=== PATIENT | male | born 1945 | race Caucasian/White ===

== ENCOUNTER 2024-08-21 18:26 | Inpatient (IN) | payer MEDICARE, OTHER ==
[~2024-08-21] VITALS: Ht 170.2 cm; Wt 68.0 kg
[2024-08-21 19:48] LABS: BASOPHILS % (AUTO) 0.6 % (0.0-2.0); EOSINOPHILS # (AUTO) 0.1 K/uL (0.0-0.7); EOSINOPHILS % (AUTO) 1.5 % (0.0-6.0); HEMATOCRIT 37 % (39-51); HEMOGLOBIN 12.3 g/dL (13.5-17.5); LYMPHOCYTES # (AUTO) 1.6 K/uL (0.8-4.8); LYMPHOCYTES % (AUTO) 34.6 % (20.0-44.0); MEAN CORPUSCULAR HEMOGLOBIN 35 PG (26.0-33.0); MEAN CORPUSCULAR HGB CONC 33 g/dl (31.0-36.0); MEAN CORPUSCULAR VOLUME 104 fL (80-96); MONOCYTES # (AUTO) 0.6 K/uL (0.1-1.30); MONOCYTES % (AUTO) 14.4 % (2.0-12.0); NEUTROPHILS # (AUTO) 2.2 K/uL (1.8-8.9); NEUTROPHILS % (AUTO) 48.9 % (43.0-81.0); PLATELET COUNT (AUTO) 193 K/uL (150-450); RED BLOOD CELL COUNT(AUTO) 3.54 MIL/uL (4.5-6.0); RED CELL DISTRIBUTION WIDTH 14.6 % (11.5-15.0); WHITE BLOOD COUNT (AUTO) 4.5 K/uL (4.3-11.0)
[2024-08-21] MEDS ORDERED: DOCU100C36 PO (19:52)
[2024-08-21] MEDS ORDERED: SENN-261 PO (19:52)
[2024-08-21] MEDS ORDERED: NA P133E RC (19:52)
[2024-08-21] MEDS ORDERED: AMIN30LI2 PO (19:52)
[2024-08-21] MEDS ORDERED: ACET-637 PO (19:52)
[2024-08-21] MEDS ORDERED: LEVE100023 PO (19:52)
[2024-08-21] MEDS ORDERED: POLY15DR31 EACHEYE (19:52)
[2024-08-21] MEDS ORDERED: LIDO30AD10 TP (19:52)
[2024-08-21] MEDS ORDERED: BUPR300T52 PO (19:52)
[2024-08-21] MEDS ORDERED: TRAZ150T75 PO (19:52)
[2024-08-21] MEDS ORDERED: BISA10SU11 RC (19:52)
[2024-08-21] MEDS ORDERED: DONE10TA44 PO (19:52)
[2024-08-21] MEDS ORDERED: ATOR40TA PO (19:52)
[2024-08-21] MEDS ORDERED: KETO120S5 TP (19:52)
[2024-08-21] MEDS ORDERED: BENZ5.1G MM (19:52)
[2024-08-21] MEDS ORDERED: METH-649 PO (19:52)
[2024-08-21] MEDS ORDERED: ONDA4TAB11 PO (19:52)
[2024-08-21] MEDS ORDERED: FLUO20TA28 PO (19:52)
[2024-08-21] MEDS ORDERED: HYDR-4303 PO (19:52)
[2024-08-21] MEDS ORDERED: PREG-57 PO (19:52)
[2024-08-21] MEDS ORDERED: MULT-225 PO (19:52)
[2024-08-21] MEDS ORDERED: QUET50TA PO (19:52)
[2024-08-21] MEDS ORDERED: GUAI100L26 PO (19:52)
[2024-08-21] MEDS ORDERED: MELA10TA7 PO (19:52)
[2024-08-21] MEDS ORDERED: ACET-73 PO (19:52)
[2024-08-21] MEDS ORDERED: MAGN400O6 PO (19:52)
[2024-08-21] MEDS ORDERED: FAMO20TA8 PO (19:52)
[2024-08-21] MEDS ORDERED: LACT10SO29 PO (19:52)
[2024-08-21] MEDS ORDERED: CYAN100096 PO (19:52)
[2024-08-21] MEDS ORDERED: ASPI-1420 PO (19:52)
[2024-08-21] MEDS ORDERED: DIVA125T32 PO (19:52)
[2024-08-21] MEDS ORDERED: LEVO150T8 PO (19:52)
[2024-08-21 19:55] LABS: APPEARANCE,URINE CLEAR (CLEAR); BILIRUBIN,URINE Negative (NEGATIVE); BLOOD, URINE Negative Ery/uL (NEGATIVE); COLOR,URINE YELLOW (YELLOW); KETONES,URINE Trace mg/dL (NEGATIVE); LEUKOCYTE ESTERASE ,URINE Trace (NEGATIVE); PROTEIN,URINE Negative (NEGATIVE); UGLUCOSE Negative (NEGATIVE); UROBILINOGEN,URINE 0.2 EU/dL (0.2)
[2024-08-21 19:59] LABS: ACETAMINOPHEN < 10 ug/ml (10-30); ALANINE AMINOTRANSFERASE 19 U/L (12-78); ALBUMIN 3.2 g/dL (3.4-5.0); ALKALINE PHOSPHATASE 78 U/L (46-116); ASPARTATE AMINOTRANSFERASE 16 U/L (15-37); BILIRUBIN,DIRECT 0.1 mg/dL (0.0-0.2); BILIRUBIN,TOTAL 0.2 mg/dL (0.2-1.0); CALCIUM, SERUM 8.6 mg/dL (8.5-10.1); CARBON DIOXIDE 33 mmol/L (21-32); CHLORIDE 104 mmol/L (98-107); CREATININE 0.7 mg/dL (0.6-1.3); GLUCOSE 86 mg/dL (74-106); POTASSIUM 3.8 mmol/L (3.5-5.1); SODIUM SERUM 139 mmol/L (136-145); TOTAL PROTEIN, SERUM 6.5 g/dL (6.4-8.2); UREA NITROGEN, BLOOD 24 mg/dL (7-18)
[2024-08-21 20:00] LABS: NITRITE, URINE POSITIVE (NEGATIVE)
[2024-08-21 20:02] LABS: ADD URINE CULTURE YES; AMPHETAMINE, URINE NEGATIVE (NEGATIVE); BACTERIA,URINE Few /HPF (None Seen); BARBITURATE, URINE NEGATIVE (NEGATIVE); BENZODIAZEPINE, URINE NEGATIVE (NEGATIVE); CALCIUM OXALATE CRYSTALS,UR Few /HPF (None Seen); CANNABINOID, URINE NEGATIVE (NEGATIVE); COCCAINE, URINE NEGATIVE (NEGATIVE); OPIATE, URINE NEGATIVE (NEGATIVE); PHENCYCLIDINE SCREEN,URINE NEGATIVE (NEGATIVE); SQUAMOUS EPITHELIAL CELL,UR None Seen /HPF (None Seen)
[2024-08-21 20:03] LABS: ALCOHOL, BLOOD < 3 mg/dL (0-10); SALICYLATE 0.7 mg/dL (2.8-20.0)
[2024-08-21] MEDS ORDERED: CEPHALEXIN MONOHYDRATE 500 MG CAPSULE PO ONE (22:22)
[2024-08-21] MEDS: CEPHALEXIN MONOHYDRATE 250 MG CAPSULE PO SCH (22:24)
[2024-08-21] MEDS ORDERED: QUETIAPINE FUMARATE 25 MG TABLET PO PRN (23:00)
[2024-08-21] MEDS ORDERED: MAG HYDROX/AL HYDROX/SIMETH 30 ML UDC PO PRN (23:00)
[2024-08-21] MEDS ORDERED: ZOLPIDEM TARTRATE 5 MG TABLET PO PRN ×2 (23:00)
[2024-08-21] MEDS ORDERED: MAGNESIUM HYDROXIDE 30 ML UDC PO PRN (23:00)
[2024-08-21] MEDS: BLOOD SUGAR DIAGNOSTIC 1 EACH STRIP IN ONE (23:38)
[2024-08-22] MEDS ORDERED: QUETIAPINE FUMARATE 25 MG TABLET PO PRN (00:30)
[2024-08-22] MEDS ORDERED: LIDOCAINE 5% (PATCH) 1 EA PATCH TP PRN (00:30)
[2024-08-22] MEDS: HYDROCODONE/APAP 5/325MG TABLET PO PRN (01:45)
[2024-08-22 02:14] VITALS: BP 115/96; TEMP 97.5; O2SAT 95
[2024-08-22 07:45] LABS: ALBUMIN 3.6 g/dL (3.4-5.0); BILIRUBIN,TOTAL 0.4 mg/dL (0.2-1.0); CREATININE 0.6 mg/dL (0.6-1.3); POTASSIUM 3.9 mmol/L (3.5-5.1); TOTAL PROTEIN, SERUM 7.3 g/dL (6.4-8.2)
[2024-08-22 07:57] LABS: CHOLESTEROL 101 mg/dL (<200); HDL CHOLESTEROL 53 mg/dL (40-60); LDL 41 mg/dL (0-99); TRIGLYCERIDES 49 mg/dL (30-150)
[2024-08-22 08:00] VITALS: BP 133/78; TEMP 98.1; O2SAT 98
[2024-08-22] MEDS: LEVOTHYROXINE SODIUM 50 MCG TABLET PO SCH (08:12)
[2024-08-22 08:20] LABS: THYROID STIMULATING HORMONE 1.43 uIU/mL (0.358-3.74)
[2024-08-22] MEDS: LEVETIRACETAM (250 MG) 250 MG TABLET PO SCH (08:38)
[2024-08-22] MEDS: PREGABALIN 25 MG CAPSULE PO SCH (08:38)
[2024-08-22] MEDS: MULTIVITAMINS,THERAGRAN 1 UDTAB TABLET PO SCH (08:38)
[2024-08-22] MEDS: CYANOCOBALAMIN 500 MCG TABLET PO SCH (08:38)
[2024-08-22] MEDS: ASPIRIN EC 81 MG TABLET.DR PO SCH (08:38)
[2024-08-22] MEDS: SENNOSIDES 8.6 MG TABLET PO SCH (08:38)
[2024-08-22] MEDS: FAMOTIDINE (20 MG) 20 MG TABLET PO SCH (08:38)
[2024-08-22] MEDS: DOCUSATE SODIUM 100 MG CAPSULE PO SCH (08:38)
[2024-08-22] MEDS: POLYVINYL ALCOHOL 15 ML BOTTLE EACHEYE SCH (08:39)
[2024-08-22 16:00] VITALS: BP 131/82; TEMP 97.8; O2SAT 99
[2024-08-22] MEDS: PROSOURCE / PROSTAT (PYXIS) 30 ML UDC PO SCH (18:00)
[2024-08-22 20:00] VITALS: BP 143/82; TEMP 97.8; O2SAT 96
[2024-08-22] MEDS: DIVALPROEX SODIUM 125 MG TABLET.DR PO SCH (21:24)
[2024-08-22] MEDS: ATORVASTATIN 40 MG TABLET PO SCH (21:24)
[2024-08-22] MEDS: DONEPEZIL 5 MG TABLET PO SCH (21:24)
[2024-08-22] MEDS: QUETIAPINE FUMARATE 25 MG TABLET PO SCH (21:39)
[2024-08-22] MEDS ORDERED: Medication Not On Formulary EA (Melatonin 10 MG) PO SCH (22:00)
[2024-08-23 08:00] VITALS: BP 125/68; TEMP 97.7; O2SAT 97
[2024-08-23] MEDS: SERTRALINE HCL 25 MG TABLET PO SCH (10:15)
[2024-08-23 16:00] VITALS: BP 115/69; TEMP 97.7; O2SAT 95
[2024-08-23 20:00] VITALS: BP 126/86; TEMP 98.1; O2SAT 96
[2024-08-23] MEDS: TEMAZEPAM 7.5 MG CAPSULE PO PRN (23:36)
[2024-08-24 08:00] VITALS: BP 128/84; TEMP 97.8; O2SAT 98
[2024-08-24] MEDS: QUETIAPINE FUMARATE 25 MG TABLET PO PRN (11:21)
[2024-08-24 16:00] VITALS: BP 113/74; TEMP 98.7; O2SAT 95
[2024-08-24] MEDS: ACETAMINOPHEN 325 MG TABLET PO PRN (19:02)
[2024-08-24 20:04] VITALS: BP 125/73; TEMP 98.1; O2SAT 95
[2024-08-25 07:30] VITALS: BP 126/76; TEMP 98.1; O2SAT 98
[2024-08-25 16:00] VITALS: BP 139/89; TEMP 98.2; O2SAT 93
[2024-08-25 20:00] VITALS: BP 123/79; TEMP 98.1; O2SAT 96
[2024-08-25 20:29] VITALS: BP 123/79; TEMP 98.1; O2SAT 96
[2024-08-26 08:37] VITALS: BP 123/91; TEMP 97.8; O2SAT 94
[2024-08-26 16:00] VITALS: BP 119/79; TEMP 97.7; O2SAT 96
[2024-08-26] MEDS: Z GUARD REMEDY 4 OZ OINT TP SCH (18:14)
[2024-08-26] MEDS ORDERED: OLANZAPINE 10 MG VIAL IM STA (19:13)
[2024-08-26] MEDS: OLANZAPINE 10 MG VIAL IM STA (19:36)
[2024-08-26 20:38] VITALS: BP 139/80; TEMP 98.2; O2SAT 97
[2024-08-27 08:00] VITALS: BP 131/69; TEMP 97.8; O2SAT 100
[2024-08-27] MEDS: NEOMY SULF/BACITRAC ZN/POLY 15 GM TUBE TP SCH (09:00)
[2024-08-27] MEDS: DIVALPROEX SODIUM 125 MG TABLET.DR PO SCH (13:17)
[2024-08-27 16:00] VITALS: BP 110/70; TEMP 97.7; O2SAT 97
[2024-08-27 20:00] VITALS: BP 122/84; TEMP 95.7; O2SAT 97
[2024-08-28 08:00] VITALS: BP 143/85; TEMP 97.7; O2SAT 94
[2024-08-28 16:00] VITALS: BP 105/79; TEMP 98; O2SAT 98
[2024-08-28 20:00] VITALS: BP 122/75; TEMP 98.1; O2SAT 97
[2024-08-28 21:22] VITALS: BP 122/75; TEMP 98.1; O2SAT 97
[2024-08-29 08:00] VITALS: BP 133/78; TEMP 98.1; O2SAT 98
[2024-08-29] MEDS: QUETIAPINE FUMARATE 25 MG TABLET PO SCH (11:38)
[2024-08-29 16:08] VITALS: BP 104/73; TEMP 97.9; O2SAT 97
[2024-08-29 20:02] VITALS: BP 119/68; TEMP 97.9; O2SAT 95
[2024-08-30 08:00] VITALS: BP 130/78; TEMP 98; O2SAT 100
== END 2024-08-30 14:45 | DRG 885 ==
LOC: ER 18:32 → GPS 21:33
PROVIDERS: ADMIT Psychiatry & Neurology Psychiatry; ATTEND Nurse Practitioner Acute Care
DX: F39 Unspecified mood [affective] disorder (principal); F02.818 Dementia in other diseases classified elsewhere, unspecified severity, with other behavioral disturbance; F02.82 Dementia in other diseases classified elsewhere, unspecified severity, with psychotic disturbance; F02.84 Dementia in other diseases classified elsewhere, unspecified severity, with anxiety; F02.83 Dementia in other diseases classified elsewhere, unspecified severity, with mood disturbance; N39.0 Urinary tract infection, site not specified; E44.1 Mild protein-calorie malnutrition; I10 Essential (primary) hypertension; F29 Unspecified psychosis not due to a substance or known physiological condition; N40.0 Benign prostatic hyperplasia without lower urinary tract symptoms; G20.A1 Parkinson's disease without dyskinesia, without mention of fluctuations; G31.83 Neurocognitive disorder with Lewy bodies; Z96.611 Presence of right artificial shoulder joint; Z87.891 Personal history of nicotine dependence; E78.5 Hyperlipidemia, unspecified; F31.9 Bipolar disorder, unspecified; F43.10 Post-traumatic stress disorder, unspecified; E03.9 Hypothyroidism, unspecified; Z79.890 Hormone replacement therapy; Z79.82 Long term (current) use of aspirin; Z73.6 Limitation of activities due to disability; Z79.899 Other long term (current) drug therapy; B96.89 Other specified bacterial agents as the cause of diseases classified elsewhere; D53.9 Nutritional anemia, unspecified; R79.89 Other specified abnormal findings of blood chemistry; E88.09 Other disorders of plasma-protein metabolism, not elsewhere classified; G47.00 Insomnia, unspecified; Z63.72 Alcoholism and drug addiction in family; Z81.1 Family history of alcohol abuse and dependence; S61.213A Laceration without foreign body of left middle finger without damage to nail, initial encounter; W05.0XXA Fall from non-moving wheelchair, initial encounter; Y92.9 Unspecified place or not applicable
CPT/HCPCS: 36415; 80048-TC; 80053-TC; 80061-TC; 80076-TC; 80164-TC; 81001; 82607-TC; 82728-TC; 82962-TC; 83540-TC; 84443-TC; 85025-TC; 87081-TC; 87086-TC; 97116-TC; 97530-TC; G0480; J3490

== ENCOUNTER 2024-11-12 15:54 | Inpatient (IN) | payer MEDICARE, OTHER ==
[~2024-11-12] VITALS: Ht 165.1 cm; Wt 68.0 kg
[~2024-11-12 15:54] MED LIST: ACET-637 PO; ACET-73 PO; AMIN30LI2 PO; ASPI-1420 PO; ATOR40TA PO; BENZ5.1G MM; BISA10SU11 RC; BUPR300T52 PO; CYAN100096 PO; DIVA125T32 PO; DOCU100C36 PO; DONE10TA44 PO; FAMO20TA8 PO; FLUO20TA28 PO; GUAI100L26 PO; HYDR-4303 PO; KETO120S5 TP; LACT10SO29 PO; LEVE100023 PO; LEVO150T8 PO; LIDO30AD10 TP; MAGN400O6 PO; MELA10TA7 PO; METH-649 PO; MULT-225 PO; NA P133E RC; ONDA4TAB11 PO; POLY15DR31 EACHEYE; PREG-57 PO; QUET50TA PO; SENN-261 PO; TRAZ150T75 PO
[2024-11-12 17:54] LABS: PLATELET COUNT (AUTO) 179 K/uL (150-450); RED BLOOD CELL COUNT(AUTO) 3.28 MIL/uL (4.5-6.0); RED CELL DISTRIBUTION WIDTH 14.7 % (11.5-15.0); WHITE BLOOD COUNT (AUTO) 4.9 K/uL (4.3-11.0)
[2024-11-12 18:03] LABS: CALCIUM, SERUM 8.2 mg/dL (8.5-10.1); CREATININE 0.7 mg/dL (0.6-1.3); SODIUM SERUM 142 mmol/L (136-145); UREA NITROGEN, BLOOD 13 mg/dL (7-18)
[2024-11-12 18:11] LABS: ASPARTATE AMINOTRANSFERASE 19 U/L (15-37); TOTAL PROTEIN, SERUM 6.4 g/dL (6.4-8.2)
[2024-11-12 18:12] LABS: ALCOHOL, BLOOD < 3 mg/dL (0-10)
[2024-11-12] MEDS ORDERED: HALOPERIDOL LACTATE INJ 5 MG/ML VIAL ONE (18:39)
[2024-11-12] MEDS: HALOPERIDOL LACTATE INJ 5 MG/ML VIAL IM ONE (18:44)
[2024-11-12 19:01] LABS: AMPHETAMINE, URINE NEGATIVE (NEGATIVE); BARBITURATE, URINE NEGATIVE (NEGATIVE); BENZODIAZEPINE, URINE NEGATIVE (NEGATIVE); CANNABINOID, URINE NEGATIVE (NEGATIVE); COCCAINE, URINE NEGATIVE (NEGATIVE); OPIATE, URINE POSITIVE (NEGATIVE)
[2024-11-12 19:04] LABS: APPEARANCE,URINE CLEAR (CLEAR); BLOOD, URINE NEGATIVE Ery/uL (NEGATIVE); LEUKOCYTE ESTERASE ,URINE TRACE (NEGATIVE); NITRITE, URINE POSITIVE (NEGATIVE); UGLUCOSE NEGATIVE (NEGATIVE)
[2024-11-12] MEDS ORDERED: SERT25TA5 PO (19:05)
[2024-11-12] MEDS ORDERED: MAG30ORA PO (19:05)
[2024-11-12] MEDS ORDERED: BUPR-54 PO (19:05)
[2024-11-12] MEDS ORDERED: ACET325T53 PO (19:05)
[2024-11-12] MEDS ORDERED: HYDR28.32 TP (19:06)
[2024-11-12] MEDS ORDERED: DICL100G34 TP (19:06)
[2024-11-12] MEDS ORDERED: LORA-258 PO (19:06)
[2024-11-12] MEDS ORDERED: BUPR1PAT2 TD (19:06)
[2024-11-12] MEDS ORDERED: POVI1MED TP (19:06)
[2024-11-12 19:13] LABS: ADD URINE CULTURE YES; SQUAMOUS EPITHELIAL CELL,UR 0-2 /HPF (None Seen)
[2024-11-12] MEDS ORDERED: HYDROCODONE/APAP 5/325MG TABLET ONE (21:08)
[2024-11-12] MEDS: HYDROCODONE/APAP 5/325MG TABLET PO ONE (21:21)
[2024-11-12] MEDS ORDERED: MAGNESIUM HYDROXIDE 30 ML UDC PO PRN ×2 (22:00→23:00)
[2024-11-12] MEDS ORDERED: BISACODYL SUPP (10 MG) 10 MG/SUPP.RECT SUPP.RECT RC PRN (22:00)
[2024-11-12] MEDS ORDERED: MAG HYDROX/AL HYDROX/SIMETH 30 ML UDC PO PRN ×2 (22:00→23:00)
[2024-11-12] MEDS ORDERED: ONDANSETRON 4 MG TAB.RAPDIS PO PRN (22:00)
[2024-11-12] MEDS ORDERED: NA PHOS,M-B/NA PHOS,DI-BA 1 EA ENEMA RC PRN (22:00)
[2024-11-12] MEDS ORDERED: ACETAMINOPHEN 325 MG TABLET PO PRN (22:00)
[2024-11-12] MEDS ORDERED: QUETIAPINE FUMARATE 25 MG TABLET PO PRN ×2 (23:00)
[2024-11-12] MEDS ORDERED: ZOLPIDEM TARTRATE 5 MG TABLET PO PRN (23:00)
[2024-11-12] MEDS: ATORVASTATIN 40 MG TABLET PO SCH (23:07)
[2024-11-12] MEDS: PREGABALIN 25 MG CAPSULE PO SCH (23:07)
[2024-11-12] MEDS: CEPHALEXIN MONOHYDRATE 500 MG CAPSULE PO SCH (23:07)
[2024-11-12] MEDS: BLOOD SUGAR DIAGNOSTIC 1 EACH STRIP IN ONE (23:08)
[2024-11-12 23:20] VITALS: BP 125/67; TEMP 97.7; O2SAT 95
[2024-11-13] MEDS: ACETAMINOPHEN 325 MG TABLET PO PRN (00:34)
[2024-11-13 07:34] LABS: ASPARTATE AMINOTRANSFERASE 20.0 U/L (15-37); CALCIUM, SERUM 8.5 mg/dL (8.5-10.1); CREATININE 0.7 mg/dL (0.6-1.3); SODIUM SERUM 143.0 mmol/L (136-145); TOTAL PROTEIN, SERUM 6.1 g/dL (6.4-8.2); UREA NITROGEN, BLOOD 15.0 mg/dL (7-18)
[2024-11-13 07:49] LABS: LDL 41 mg/dL (0-99)
[2024-11-13 08:00] VITALS: BP 132/72; TEMP 97.8; O2SAT 98
[2024-11-13] MEDS ORDERED: LEVETIRACETAM (250 MG) 250 MG TABLET PO SCH (09:00)
[2024-11-13] MEDS ORDERED: MULTIVITAMINS,THERAGRAN 1 UDTAB TABLET PO SCH (09:00)
[2024-11-13] MEDS ORDERED: CYANOCOBALAMIN 500 MCG TABLET PO SCH (09:00)
[2024-11-13] MEDS: KETOCONAZOLE SHAMPOO 120 ML BOTTLE TP SCH (09:37)
[2024-11-13] MEDS: SENNOSIDES 8.6 MG TABLET PO SCH (09:47)
[2024-11-13] MEDS: CYANOCOBALAMIN 500 MCG TABLET PO SCH (09:47)
[2024-11-13] MEDS: LEVETIRACETAM (250 MG) 250 MG TABLET PO SCH (09:48)
[2024-11-13] MEDS: ASPIRIN EC 81 MG TABLET.DR PO SCH (09:49)
[2024-11-13] MEDS: DOCUSATE SODIUM 100 MG CAPSULE PO SCH (09:49)
[2024-11-13] MEDS: LEVOTHYROXINE SODIUM 75 MCG TABLET PO SCH (09:49)
[2024-11-13] MEDS: FAMOTIDINE (20 MG) 20 MG TABLET PO SCH (09:49)
[2024-11-13] MEDS: MULTIVITAMINS,THERAGRAN 1 UDTAB TABLET PO SCH (09:49)
[2024-11-13] MEDS: HYDROCORTISONE 1% CREAM 28.35 GM TUBE TP SCH (09:50)
[2024-11-13] MEDS: POVIDONE-IODINE OINT 28.4 GM TUBE TP SCH (09:50)
[2024-11-13] MEDS: POLYVINYL ALCOHOL 15 ML BOTTLE EACHEYE SCH (09:51)
[2024-11-13 16:00] VITALS: BP 135/71; TEMP 98; O2SAT 96
[2024-11-13] MEDS: HYDROCODONE/APAP 5/325MG TABLET PO PRN (16:19)
[2024-11-13] MEDS: LIDOCAINE 5% (PATCH) 1 EA PATCH TP PRN (19:59)
[2024-11-13 20:00] VITALS: BP 118/59; TEMP 97.5; O2SAT 98
[2024-11-13 20:28] VITALS: BP 118/59; TEMP 97.5; O2SAT 98
[2024-11-13] MEDS: QUETIAPINE FUMARATE 25 MG TABLET PO SCH (21:10)
[2024-11-14 07:54] LABS: CREATININE 0.7 mg/dL (0.6-1.3)
[2024-11-14 08:00] VITALS: BP 132/69; TEMP 98.6; O2SAT 98
[2024-11-14] MEDS: DIVALPROEX SODIUM 125 MG TABLET.DR PO SCH (09:46)
[2024-11-14 16:00] VITALS: BP 123/81; TEMP 98.1; O2SAT 96
[2024-11-14 20:22] VITALS: BP 112/66; TEMP 98.4; O2SAT 97
[2024-11-14] MEDS: MUPIROCIN OINT 2% 22 GM TUBE NS SCH (20:34)
[2024-11-15 08:00] VITALS: BP 129/81; TEMP 98.1; O2SAT 98
[2024-11-15] MEDS: DIVALPROEX SODIUM 125 MG TABLET.DR PO SCH (13:36)
[2024-11-15 16:00] VITALS: BP 112/83; TEMP 98.4; O2SAT 96
[2024-11-15 20:00] VITALS: BP 156/83; TEMP 98.1; O2SAT 97
[2024-11-16] MEDS: DICLOFENAC TOPICAL 100 GM TUBE TP PRN (06:28)
[2024-11-16 08:00] VITALS: BP 111/67; TEMP 97.7; O2SAT 97
[2024-11-16 16:07] VITALS: BP 131/75; TEMP 98; O2SAT 97
[2024-11-16 20:00] VITALS: BP 124/80; TEMP 98.6; O2SAT 97
[2024-11-16 21:17] VITALS: BP 124/80; TEMP 98.6; O2SAT 97
[2024-11-16] MEDS: BACLOFEN (10 MG) 10 MG TABLET PO SCH (21:35)
[2024-11-17 08:20] VITALS: BP 119/58; TEMP 97.8; O2SAT 97
[2024-11-17 16:07] VITALS: BP 106/71; TEMP 98; O2SAT 96
[2024-11-17 20:39] VITALS: BP 114/66; TEMP 97.9; O2SAT 96
[2024-11-17 21:08] VITALS: BP 114/66; TEMP 97.9; O2SAT 96
[2024-11-18 08:00] VITALS: BP 105/59; TEMP 98.1; O2SAT 99
[2024-11-18 16:00] VITALS: BP 115/69; TEMP 97.9; O2SAT 98
[2024-11-18 20:48] VITALS: BP 118/73; TEMP 98.4; O2SAT 98
[2024-11-19 08:00] VITALS: BP 100/58; TEMP 98.1; O2SAT 97
[2024-11-19 16:00] VITALS: BP 110/74; TEMP 98.6; O2SAT 97
[2024-11-19 20:04] VITALS: BP 113/61; TEMP 98.6; O2SAT 98
[2024-11-19] MEDS: DIVALPROEX SODIUM 125 MG TABLET.DR PO SCH (21:52)
[2024-11-19] MEDS: ZOLPIDEM TARTRATE 5 MG TABLET PO PRN (22:38)
[2024-11-20 08:00] VITALS: BP 100/70; TEMP 97.8; O2SAT 96
[2024-11-20] MEDS: QUETIAPINE FUMARATE 25 MG TABLET PO SCH ×2 (08:22→20:07)
[2024-11-20 16:06] VITALS: BP 142/71; TEMP 98.3; O2SAT 97
[2024-11-20 20:25] VITALS: BP 109/66; TEMP 98.1; O2SAT 96
[2024-11-20 20:48] VITALS: BP 109/66; TEMP 98.1; O2SAT 96
[2024-11-21 08:00] VITALS: BP 124/73; TEMP 97.8; O2SAT 92
[2024-11-21] MEDS ORDERED: KETOCONAZOLE SHAMPOO 120 ML BOTTLE TP SCH (09:00)
[2024-11-21] MEDS ORDERED: IOHEXOL-350 100 ML VIAL IV ONE ×2 (12:33→12:46)
[2024-11-21] MEDS ORDERED: IV NS 0.9% 250 ML IV ONE (12:33)
[2024-11-21 16:00] VITALS: BP 110/97; TEMP 98.5; O2SAT 96
[2024-11-21 19:53] VITALS: BP 125/74; TEMP 97.5; O2SAT 99
[2024-11-22 08:00] VITALS: BP 126/66; TEMP 97.8; O2SAT 97
[2024-11-22] MEDS: QUETIAPINE FUMARATE 25 MG TABLET PO SCH (14:47)
[2024-11-22 16:00] VITALS: BP 113/64; TEMP 98.2; O2SAT 94
[2024-11-23 03:34] VITALS: BP 120/74; TEMP 98; O2SAT 98
[2024-11-23 08:00] VITALS: BP 125/92; TEMP 98.1; O2SAT 98
== END 2024-11-23 11:59 | DRG 885 ==
LOC: ER 16:00 → GPS 21:56
PROVIDERS: ADMIT Psychiatry & Neurology Psychiatry; ATTEND Student in an Organized Health Care Education/Training Program
DX: F31.9 Bipolar disorder, unspecified (principal); N39.0 Urinary tract infection, site not specified; F02.818 Dementia in other diseases classified elsewhere, unspecified severity, with other behavioral disturbance; F02.83 Dementia in other diseases classified elsewhere, unspecified severity, with mood disturbance; F02.82 Dementia in other diseases classified elsewhere, unspecified severity, with psychotic disturbance; E44.1 Mild protein-calorie malnutrition; G93.49 Other encephalopathy; D61.818 Other pancytopenia; F29 Unspecified psychosis not due to a substance or known physiological condition; E78.5 Hyperlipidemia, unspecified; I10 Essential (primary) hypertension; G62.9 Polyneuropathy, unspecified; G31.83 Neurocognitive disorder with Lewy bodies; F39 Unspecified mood [affective] disorder; Z73.6 Limitation of activities due to disability; B96.89 Other specified bacterial agents as the cause of diseases classified elsewhere; G40.909 Epilepsy, unspecified, not intractable, without status epilepticus; K21.9 Gastro-esophageal reflux disease without esophagitis; E03.9 Hypothyroidism, unspecified; E88.09 Other disorders of plasma-protein metabolism, not elsewhere classified; Z22.322 Carrier or suspected carrier of Methicillin resistant Staphylococcus aureus; S61.212A Laceration without foreign body of right middle finger without damage to nail, initial encounter; X58.XXXA Exposure to other specified factors, initial encounter; Y92.129 Unspecified place in nursing home as the place of occurrence of the external cause; Z79.890 Hormone replacement therapy; Z79.82 Long term (current) use of aspirin; Z79.899 Other long term (current) drug therapy; S80.812A Abrasion, left lower leg, initial encounter; H53.8 Other visual disturbances; Z98.890 Other specified postprocedural states
CPT/HCPCS: 36415; 70450-TC; 70496-TC; 70498-TC; 80048-TC; 80053-TC; 80061-TC; 80076-TC; 80164-TC; 81001; 82565-TC; 82962-TC; 85025-TC; 87081-TC; 87086-TC; 97110-TC; 97116-TC; 97530-TC; 97535-TC; G0480; J1630; J7050; Q9967